=== PATIENT | male | born 1965 | race Caucasian/White ===

== ENCOUNTER → 2017-01-12 | Outpatient (CLI) | payer BC ==
[~2017-01-12] MED LIST: ALPH50CA2 PO; ASCA500 PO; BOSW1TAB3 PO; CELERY SEED PO; CHOLTAB3 PO; CYAN100020 PO; FISHCAP PO; GING1CAP2 PO; GLUCTAB7 PO; MAGN250T3 PO; MULT-506 PO; OLIV500C PO; VITA1CRE PO; [UNRECOGNIZED DRUG - OTHER] PO
[2017-01-12 12:57] LABS: CHOLESTEROL/HDL RATIO 2.5
== END | disposition home or self-care (01) ==
LOC: C.LABBFT 09:52
PROVIDERS: ATTEND Physician Assistant Medical
DX: Z00.00 Encounter for general adult medical examination without abnormal findings (principal)

== ENCOUNTER → 2018-01-31 | Outpatient (CLI) | payer BC | END | disposition home or self-care (01) | LOC: C.LABBFT 15:31 | PROVIDERS: ATTEND Internal Medicine | DX: Z00.00 Encounter for general adult medical examination without abnormal findings (principal) ==